=== PATIENT | female | born 1955 | race Caucasian/White ===

== ENCOUNTER 2016-07-18 14:35 | Outpatient (CLI) | payer OTHER | END 2016-07-18 14:36 | disposition home or self-care (01) | DX: D86.9 Sarcoidosis, unspecified (principal); R11.2 Nausea with vomiting, unspecified; R10.9 Unspecified abdominal pain ==

== ENCOUNTER 2016-07-29 11:59 | Outpatient (CLI) | payer OTHER ==
[2016-07-29] MEDS ORDERED: IOPAMIDOL-300 50 ML VIAL PO ONE (15:30)
[2016-07-29] MEDS ORDERED: IOPAMIDOL-300 100 ML VIAL IVP ONE (15:30)
== END 2016-07-29 12:00 | disposition home or self-care (01) ==
DX: R10.9 Unspecified abdominal pain (principal); R11.2 Nausea with vomiting, unspecified; K44.9 Diaphragmatic hernia without obstruction or gangrene; K80.20 Calculus of gallbladder without cholecystitis without obstruction
CPT/HCPCS: 74177; Q9967

== ENCOUNTER 2016-09-16 09:29 | Outpatient (CLI) | payer OTHER | END 2016-09-16 09:30 | disposition home or self-care (01) | DX: G47.30 Sleep apnea, unspecified (principal); G47.8 Other sleep disorders; R51 Headache; R06.83 Snoring; G47.10 Hypersomnia, unspecified ==

== ENCOUNTER 2016-10-08 13:54 | Outpatient (CLI) | payer OTHER | END 2016-10-08 13:55 | disposition home or self-care (01) | DX: M16.0 Bilateral primary osteoarthritis of hip (principal); M19.072 Primary osteoarthritis, left ankle and foot ==

== ENCOUNTER 2016-11-25 11:34 | Emergency (ER) | payer OTHER | END 2016-11-25 16:49 | disposition left against medical advice (07) | DX: G45.9 Transient cerebral ischemic attack, unspecified (principal); R27.0 Ataxia, unspecified; I10 Essential (primary) hypertension; E78.00 Pure hypercholesterolemia, unspecified; I20.9 Angina pectoris, unspecified; J45.909 Unspecified asthma, uncomplicated; E11.9 Type 2 diabetes mellitus without complications ==

== ENCOUNTER 2016-12-28 18:57 | Outpatient (CLI) | payer OTHER | END 2016-12-28 18:58 | disposition home or self-care (01) | LOC: SC 18:57 | PROVIDERS: ATTEND Internal Medicine Pulmonary Disease | DX: G47.33 Obstructive sleep apnea (adult) (pediatric) (principal); G47.61 Periodic limb movement disorder; Z68.34 Body mass index [BMI] 34.0-34.9, adult | CPT/HCPCS: 95810 ==

== ENCOUNTER 2017-01-12 12:59 | Outpatient (CLI) | payer OTHER ==
--- NOTE | 2017-01-14 11:29 | Ultrasound Report ---
CAROTID DUPLEX: 01/12/2017 CLINICAL INDICATION: TIA. COMPARISON: 03/10/2007. TECHNIQUE: Real-time sonographic vascular imaging was performed by the business objects analyst through the carotid arteries utilizing both color-flow and Doppler spectral analysis. Multiple community relations representative static images were saved for review. Vessel PSV cm/sec 2D Plaque Estimate % ICA/CCA PSV EDV cm/sec % Stenosis RCCA Prox 101.5 -- RCCA Dist 88.8 19 RECA 98 -- RT BULB 82 -- 0.93 17 NASRA Prox 72 -- 0.81 9 NASRA Mid 86 -- 0.97 24 NASRA Dist 73 -- 0.74 6 RVA 44 RVA flow direction: Antegrade. Vessel PSV cm/sec 2D Plaque Estimate % ICA/CCA PSV EDV cm/sec % Stenosis LCCA Prox 172 -- LCCA Dist 83 16 LECA 95 -- LFT BULB 63 -- 0.75 10 LICA Prox 74 -- 0.89 10 LICA Mid 67 -- 0.80 14 LICA Dist 63 -- 0.75 19 LVA 67 LVA flow direction: Antegrade. Velocity criteria are extrapolated from diameter data as defined by the Society of Radiologists in Ultrasound Consensus Conference Radiology 2003; 229; 340-346. Degree of Stenosis % ICA PSV cm/sec Plaque Estimate % ICA/CCA RSV Ratio ICA EDV cm/sec Normal < 125 None < 2.0 < 40 <50 < 125 < 50 < 2.0 < 40 50-69 125 - 130 >/= 50 2.0 - 4.0 40 - 100 >/= 70 but less than near occlusion > 230 >/= 50 > 4.0 > 100 Near occlusion High, low, or undetectable Visible lumen Variable Variable Total occlusion Undetectable No detectable lumen Not applicable Not applicable FINDINGS: RIGHT: There is minimal plaquing in the right carotid bifurcation, without evidence of a focal hemodynamically significant carotid stenosis. LEFT: There is minimal plaquing in the left carotid bifurcation, without evidence of a focal hemodynamically significant carotid stenosis. The vertebral arteries demonstrate antegrade flow bilaterally. IMPRESSION: MINIMAL PLAQUING. NO EVIDENCE OF A FOCAL HEMODYNAMICALLY SIGNIFICANT CAROTID STENOSIS. MTDD
== END 2017-01-12 13:00 | disposition home or self-care (01) ==
LOC: DI 12:59
PROVIDERS: ATTEND Physician Assistant
DX: G45.9 Transient cerebral ischemic attack, unspecified (principal); I51.7 Cardiomegaly
CPT/HCPCS: 93306; 93880

== ENCOUNTER 2017-01-29 13:24 | Outpatient (CLI) | payer OTHER | END 2017-01-29 13:25 | disposition home or self-care (01) | LOC: SC 13:24 | PROVIDERS: ATTEND Nurse Practitioner Family | DX: G47.33 Obstructive sleep apnea (adult) (pediatric) (principal); G47.61 Periodic limb movement disorder | CPT/HCPCS: 99212; 99214 ==

== ENCOUNTER 2017-03-03 19:36 | Outpatient (CLI) | payer OTHER | END 2017-03-03 19:37 | disposition home or self-care (01) | LOC: SC 19:36 | PROVIDERS: ATTEND Internal Medicine Pulmonary Disease | DX: G47.33 Obstructive sleep apnea (adult) (pediatric) (principal); G47.61 Periodic limb movement disorder | CPT/HCPCS: 95811 ==

== ENCOUNTER 2017-04-13 13:56 | Outpatient (CLI) | payer OTHER | END 2017-04-13 13:57 | disposition home or self-care (01) | LOC: SC 13:56 | PROVIDERS: ATTEND Nurse Practitioner Family | DX: G47.33 Obstructive sleep apnea (adult) (pediatric) (principal) | CPT/HCPCS: 99212; 99214 ==

== ENCOUNTER 2017-07-02 07:29 | Outpatient (CLI) | payer OTHER ==
--- NOTE | 2017-07-02 13:06 | Ultrasound Report ---
ABDOMINAL ULTRASOUND: 07/02/2017 CLINICAL INDICATION: Right upper quadrant pain, nausea, body aches. TECHNIQUE: Real-time scanning was performed with floor representative static images obtained. FINDINGS: The liver measures 13.1 cm. Hepatic echogenicity is normal. No intrahepatic biliary dilatation or focal parenchymal lesion is present. The common bile duct measures 4 mm. The gallbladder demonstrates mobile calculi. No wall thickening or pericholecystic fluid is present. The pancreas is unremarkable. The kidneys are normal, each measuring 10.3 cm. The spleen measures 8.8 cm, and appears unremarkable. The abdominal aorta is normal in caliber. The inferior vena cava is unremarkable. No free fluid is present. IMPRESSION: CHOLELITHIASIS, WITHOUT EVIDENCE OF ACUTE CHOLECYSTITIS OR BILIARY DILATATION. BARTOLOME/ TD: 07/02/2017 13:58 MTDD
== END 2017-07-02 07:30 | disposition home or self-care (01) ==
LOC: DI 07:29
PROVIDERS: ATTEND Nurse Practitioner Family
DX: K80.20 Calculus of gallbladder without cholecystitis without obstruction (principal)
CPT/HCPCS: 76700

== ENCOUNTER 2017-07-30 09:53 | Outpatient (CLI) | payer OTHER | END 2017-07-30 09:54 | disposition home or self-care (01) | LOC: SC 09:53 | PROVIDERS: ATTEND Nurse Practitioner Family | DX: G47.33 Obstructive sleep apnea (adult) (pediatric) (principal) | CPT/HCPCS: 99212; 99214 ==

== ENCOUNTER 2017-09-01 10:24 | Day surgery (SDC) | payer OTHER ==
[2017-09-01] MEDS ORDERED: LACTATED RINGERS 1,000 ML IV ONE (11:00)
[2017-09-01] MEDS ORDERED: ceFAZolin 2 GM/50 ML 2 GM/50 ML BAG IV ONE (11:06)
[2017-09-01] MEDS ORDERED: BUPIVACAINE 0.25% PF 30 ML VIAL SUBQ ONE ×2 (14:41)
[2017-09-01] MEDS ORDERED: LIDOCAINE-MPF 2% 5 ML VIAL IM ONE (15:35)
[2017-09-01] MEDS ORDERED: fentaNYL 100 MCG/2 ML VIAL IVP ONE (15:35)
[2017-09-01] MEDS ORDERED: ONDANSETRON 4 MG/2 ML VIAL IVP ONE (15:35)
[2017-09-01] MEDS ORDERED: DEXAMETHASONE 4 MG/ML VIAL IVP ONE (15:35)
[2017-09-01] MEDS ORDERED: ROCURONIUM 50 MG/5 ML VIAL IVP ONE (15:35)
[2017-09-01] MEDS ORDERED: ACETAMINOPHEN 1,000 MG/100 ML 100 ML IV ONE (15:35)
[2017-09-01] MEDS ORDERED: MIDAZOLAM 2 MG/2 ML VIAL IVP ONE (15:35)
[2017-09-01] MEDS ORDERED: PROPOFOL 200 MG/20 ML VIAL IVP ONE (15:35)
[2017-09-01] MEDS ORDERED: PHENYLEPHRINE 50 MG/5 ML VIAL IV ONE (15:35)
[2017-09-01] MEDS: HYDROmorphone 1 MG/ML SYRINGE ONE ×4 (15:42→16:00)
--- NOTE | 2017-09-01 15:45 | OPERATIVE REPORT ---
Operative Report - General Procedure Date: 09/01/17 Planned Procedure: Laparoscopic cholecystectomy Pre-Op Diagnosis: Symptomatic cholelithiasis Procedure Performed: Laparoscopic cholecystectomy and incidental umbilical herniorrhaphy Post Op Diagnosis: Symptomatic cholelithiasis and incidentally found umbilical hernia - Procedure Note Primary Surgeon: Rashad Donaldson MD Anesthesia Provider: Michael Matthews CRNA/Cally Worthington CRNA Anesthesia Technique: General ET tube, Local (30 mL 1/4% marcaine) IV Fluids (mL): 500 Estimated Blood Loss (mL): 5 Complications: None. - Other Other Information/Narrative: OPERATIVE DESCRIPTION/REPORT: After verbal and written informed consent was obtained detailing the risks of infection, bleeding with all of its risks including transfusion, common bile duct injury, and the patient was brought to the operative suite and placed in the supine position on the operating room table. Monitoring devices were applied along with TEDs and pneumatic compressive stockings. Care was taken to avoid pressure points. Prophylactic antibiotics were given. An adequate level of general endotracheal anesthesia was established by [name]. The abdomen was then prepped with ChloraPrep and draped in a sterile fashion. A "time in" then confirmed that the patient was identified with 3 identifiers ( name, date and medical record number), the history and physical was in the chart, the signed consent confirming the procedure was in the chart, the patient was in the correct position, the aforementioned prophylactic measures were in place or given, we had the correct personnel and equipment to complete the procedure and that anesthesia, surgery and nursing were given an opportunity to express any concerns. The initial incision was at the umbilicus and dissection to the linea alba was completed using blunt dissection. A small umbilical hernia was noted and used to enter the abdomen. The peritoneum was grasped and incised using Metzenbaum scissors. In this location, a 12 mm blunt tipped, balloon tipped port was placed and the balloon was inflated to keep the port in position. The abdominal cavity was insufflated with carbon dioxide to steady-state pressure of 15 mmHg. Three additional 5 mm ports were placed in standard location for laparoscopic cholecystectomy (subxiphoid and 2 right subcostal) under direct vision of the 30 degree laparoscope and without incident. The patient was then placed in reverse Trendelenburg position and was rotated slightly to their left. The gallbladder fundus was grasped with an atraumatic grasper. Multiple adhesions had to be taken down by blunt and sharp dissection along with electrocautery. Eventually, we identified the infundibulum, and this was then grasped and retracted inferior and laterally. Dissection was then begun in the angle of Calot. The cystic duct and (slightly medially and posteriorly) cystic artery were clearly identified. The critical view was obtained. Two clips proximally and one clip distally were used to control both the cystic duct and cystic artery. The clips were carefully placed to avoid occluding the juncture with the common bile duct. Both the cystic duct and then the cystic artery were then transected with laparoscopic megan. The gallbladder was then removed from its fossa in a retrograde fashion using electrocautery. With the 30 degree 5 mm scope in the subxiphoid position, the gallbladder was placed in an EndoCatch bag to be extracted through the 12 mm port site. I irrigated the right upper quadrant with a liter of warm sterile saline, and the area was aspirated dry. I inspected the gallbladder fossa and there was no bleeding or bile leak. Clips on the cystic duct and cystic artery appeared to be secure. I briefly visually explored the abdomen. There was no other evidence of overt pathology. I injected the port sites at the peritoneal, fascial, and skin levels under direct vision with 0.5% Marcaine. All ports and the EndoCatch containing the gallbladder were removed. Following gallbladder removal, the remaining carbon dioxide was expelled from the abdomen. The fascia at the umbilicus was reapproximated using 2 [id number] 0 Vicryl sutures repairing the umbilical hernia. The skin at each port site was approximated using a subcuticular 4-0 Monocryl. The surgical count of instruments, needles and sponges was reported as correct twice. Mastisol, Steri -Strips and sterile surgical dressings were applied. The patient was then awakened from anesthesia, extubated, and having tolerated the procedure well, was transported to the recovery room. No complications were encountered. A "time out" confirmed the operation performed, the fluids given, the estimated blood loss and anesthesia, surgery and nursing were given an opportunity to express any concerns.
[2017-09-01] MEDS ORDERED: KETOROLAC 30 MG/ML VIAL ONE (15:48)
[2017-09-01] MEDS ORDERED: HYDROmorphone 1 MG/ML SYRINGE ONE (16:13)
[2017-09-01] MEDS ORDERED: oxyCOD/ACETAMIN 5 MG/325 MG TABLET PO ONE (16:43)
[2017-09-01] MEDS ORDERED: diphenhydrAMINE 25 MG CAPSULE PO ONE (17:07)
[2017-09-01 17:37] VITALS: BP 107/75
[2017-09-01] MEDS ORDERED: ONDANSETRON ODT 4 MG TABLET ONE (17:43)
== END 2017-09-01 10:25 | disposition home or self-care (01) ==
LOC: SDS 10:24
PROVIDERS: ATTEND Surgery
PROC: 0FT44ZZ Resection of Gallbladder, Percutaneous Endoscopic Approach (ICD-10-PCS; principal; 2017-09-01 11:45)
DX: K80.10 Calculus of gallbladder with chronic cholecystitis without obstruction (principal); K42.9 Umbilical hernia without obstruction or gangrene; I10 Essential (primary) hypertension; J45.909 Unspecified asthma, uncomplicated; Z87.891 Personal history of nicotine dependence; E78.5 Hyperlipidemia, unspecified; G47.30 Sleep apnea, unspecified
CPT/HCPCS: 47562; A9270; J0131; J0690; J1170; J7120; Q0162

== ENCOUNTER 2018-05-31 06:16 | Day surgery (SDC) | payer OTHER ==
[2018-05-31] MEDS ORDERED: LACTATED RINGERS 1,000 ML IV ONE (06:47)
[2018-05-31] MEDS ORDERED: fentaNYL 250 MCG/5 ML VIAL IVP ONE (07:30)
[2018-05-31] MEDS ORDERED: MIDAZOLAM 2 MG/2 ML VIAL IVP ONE (07:30)
[2018-05-31] MEDS ORDERED: LIDO GARGLE 30 ML BOTTLE ONE (07:32)
[2018-05-31] MEDS ORDERED: LIDO GARGLE 30 ML BOTTLE PO ONE (07:51)
[2018-05-31 09:04] VITALS: BP 121/73
== END 2018-05-31 06:17 | disposition home or self-care (01) ==
LOC: SDS 06:16
PROVIDERS: ATTEND Surgery
PROC: 0DB38ZX Excision of Lower Esophagus, Via Natural or Artificial Opening Endoscopic, Diagnostic (ICD-10-PCS; 2018-05-31)
PROC: 0DJD8ZZ Inspection of Lower Intestinal Tract, Via Natural or Artificial Opening Endoscopic (ICD-10-PCS; 2018-05-31)
PROC: 0DB98ZX Excision of Duodenum, Via Natural or Artificial Opening Endoscopic, Diagnostic (ICD-10-PCS; principal; 2018-05-31 07:30)
PROC: 0DB68ZX Excision of Stomach, Via Natural or Artificial Opening Endoscopic, Diagnostic (ICD-10-PCS; 2018-05-31 07:30)
DX: D50.9 Iron deficiency anemia, unspecified (principal); K21.0 Gastro-esophageal reflux disease with esophagitis; K29.70 Gastritis, unspecified, without bleeding; K57.30 Diverticulosis of large intestine without perforation or abscess without bleeding; K44.9 Diaphragmatic hernia without obstruction or gangrene; F32.9 Major depressive disorder, single episode, unspecified; F41.9 Anxiety disorder, unspecified; Z87.891 Personal history of nicotine dependence; Z72.89 Other problems related to lifestyle
CPT/HCPCS: 43239; 45378; 87081; A9270; J3010; J7120

== ENCOUNTER 2018-06-06 11:52 | Outpatient (CLI) | payer OTHER | END 2018-06-06 11:53 | disposition critical access hospital (66) | LOC: EMS 11:52 | PROVIDERS: ATTEND Surgery | DX: R41.0 Disorientation, unspecified (principal); R20.0 Anesthesia of skin; R25.9 Unspecified abnormal involuntary movements | CPT/HCPCS: A0425; A0429 ==

== ENCOUNTER 2018-08-06 11:45 | Outpatient (CLI) | payer OTHER ==
--- NOTE | 2018-08-08 07:39 | Ultrasound Report ---
Reason: NONTOXIC MULTINODULAR GOITER Procedure Date: 08/06/2018 Accession Number: [id number] / [id number] Procedure: US - Head or Neck Soft Tissue CPT Code: FULL RESULT: EXAM: THYROID ULTRASOUND EXAM DATE: 08/06/2018 11:58 AM. CLINICAL HISTORY: Nontoxic multinodular goiter. COMPARISON: None. TECHNIQUE: Real time sonographic imaging of the thyroid was performed by the transaction coordinator. Multiple sales representative marine supplies static images were saved for review. FINDINGS: THYROID GLAND: Right Lobe: 4.9 x 1.7 x 2.4 cm, volume 10.4 cc. Normal background echotexture. Right Lobe Nodules: 1. Upper pole solid vascular nodule without calcification, 1 x 0.8 x 1.1 cm. 2. Medial mid pole complex cystic nodule, 1.8 x 1.2 x 1.8 cm. 3. Lower pole hypoechoic vascular nodule without calcification, 1.7 x 1.4 x 1.8 cm. Left Lobe: 4.2 x 1.7 x 1.8 cm, volume 6.7 cc. Normal background echotexture. Left Lobe Nodules: 1. Mid pole heterogeneous vascular nodule with cystic component without calcification, 1.8 x 1.3 x 1.3 cm. 2. Isoechoic vascular nodule without calcification in the lower pole, 1.5 x 1 x 1.4 cm. Isthmus: 0.45 cm AP. Isthmic Nodules: None. LYMPH NODES: No adenopathy demonstrated in the central or lateral compartment. OTHER: None. IMPRESSION: Three solid vascular thyroid nodules; two in the right lobe, one in the left lobe, one complex cyst nodule in each lobe; sonographic features of low to intermediate suspicion for malignancy. Consider fine-needle aspiration of the dominant solid vascular thyroid nodule in the lower pole of the right lobe, and thyroid ultrasound follow-up in 12 months is recommended. Management recommendations are based on 2015 [place] [employer] [employer] Management Guidelines for Adult Patients with Thyroid Nodules and Differentiated Thyroid Cancer. RADIA
== END 2018-08-06 11:46 | disposition home or self-care (01) ==
LOC: DI 11:45
PROVIDERS: ATTEND Physician Assistant
DX: E04.2 Nontoxic multinodular goiter (principal)
CPT/HCPCS: 76536

== ENCOUNTER 2018-11-03 12:45 | Outpatient (CLI) | payer OTHER ==
--- NOTE | 2018-11-03 13:53 | XRAY Report ---
Reason: SARCOIDOSIS Procedure Date: 11/03/2018 Accession Number: [id number] / [id number] Procedure: XR - Chest 2 View X-Ray CPT Code: 78788 FULL RESULT: EXAM: CHEST RADIOGRAPHY EXAM DATE: 11/03/2018 12:48 PM. CLINICAL HISTORY: Sarcoidosis. COMPARISON: XR CHEST 1 VIEW 03/10/2007 2:30 PM. TECHNIQUE: 2 views. FINDINGS: Lungs/Pleura: Interval decrease in previously seen patchy bilateral airspace opacities. Pronounced bronchial wall thickening remains. There is also the suggestion of sub-5 mm pulmonary nodules in both lower lobes. Lung parenchyma appears distorted, question fibrosis. Mediastinum: Lateral radiograph is suggestive of small hilar lymph nodes. Cardiac silhouette is stable in size. Other: None. IMPRESSION: Radiographic improvement with suggestion of development of fibrosis, radiographically stage IV. If clinically indicated, pulmonary fibrosis can be radiographically confirmed by CT. Functionally, PFT. RADIA
== END 2018-11-03 12:46 | disposition home or self-care (01) ==
LOC: DI 12:45
PROVIDERS: ATTEND Physician Assistant
DX: D86.9 Sarcoidosis, unspecified (principal)
CPT/HCPCS: 71046

== ENCOUNTER 2019-03-17 19:04 | Outpatient (CLI) | payer OTHER | END 2019-03-17 19:05 | disposition short-term general hospital (02) | LOC: EMS 19:04 | PROVIDERS: ATTEND Surgery | DX: M79.652 Pain in left thigh (principal); M25.562 Pain in left knee; Z96.653 Presence of artificial knee joint, bilateral | CPT/HCPCS: A0425; A0427 ==